=== PATIENT | male | born 1990 | race Caucasian/White ===

== ENCOUNTER 2016-05-04 13:32 | Emergency (ER) | payer MEDICAID ==
[2016-05-04] MEDS ORDERED: HALOPERIDOL LACTATE INJ 5 MG/1 ML VIAL IM ONE ×2 (13:53→14:43)
[2016-05-04] MEDS ORDERED: LORAZEPAM INJ 2 MG/1 ML VIAL IM ONE (14:43)
[2016-05-04] MEDS ORDERED: DIPHENHYDRAMINE HCL 50 MG/ML VIAL IM ONE (14:43)
[2016-05-04 14:45] LABS: ABSOLUTE BASOPHILS # (AUTO) 0.1 10^3/uL (0.0-0.2); ABSOLUTE EOSINOPHILS # (AUTO) 0.3 10^3/uL (0.0-0.6); ABSOLUTE LYMPHOCYTES (AUTO) 1.7 10^3/uL (0.5-4.7); ABSOLUTE MONOCYTES (AUTO) 0.7 10^3/uL (0.1-1.4); ABSOLUTE NEUT (AUTO) 7.9 10^3/uL (1.7-8.2); BASOPHILS % (AUTO) 1.1 % (0-2); EOSINOPHILS % (AUTO) 2.9 % (0-6); HEMATOCRIT 44.2 % (37.9-51.0); HEMOGLOBIN 15.1 g/dL (13.5-17.0); HGB HCT DIFFERENCE 1.1; LYMPHOCYTES % (AUTO) 15.9 % (13-45); MEAN CORPUSCULAR HEMOGLOBIN 30.5 pg (27.0-33.4); MEAN CORPUSCULAR HGB CONC 34.2 g/dL (32.0-36.0); MEAN CORPUSCULAR VOLUME 89 fl (80-97); MONOCYTES % (AUTO) 6.9 % (3-13); RED BLOOD COUNT 4.96 10^6/uL (4.35-5.55); RED CELL DISTRIBUTION WIDTH 13.2 % (11.5-14.0); SEGMENTED NEUTROPHILS % (AUTO) 73.2 % (42-78); WHITE BLOOD COUNT 10.8 10^3/uL (4.0-10.5)
--- NOTE | 2016-05-04 14:54 | ER Document Report ---
ED General - General Chief Complaint: Psych Problem Stated Complaint: IVC W/PAPERS Mode of Arrival: Medic Information source: Patient, Law Enforcement Notes: 26-year-old male history of schizophrenia who has been off his medications presents with police with concerns of bizarre behavior. Patient denies any specific concerns noted that he was stating that he was God the president and was aggressive towards others TRAVEL OUTSIDE OF THE [place] IN LAST 30 DAYS: No - HPI Onset: Just prior to arrival Onset/Duration: Sudden Quality of pain: No pain Severity: Moderate Pain Level: Denies Associated symptoms: Other Exacerbated by: Denies Relieved by: Denies Similar symptoms previously: Yes Recently seen / treated by doctor: Yes - Related Data Allergies/Adverse Reactions: No Known Allergies Allergy (Verified 02/02/15 15:52) Home Medications: Current Home Medications Benztropine Mesylate [Cogentin 1 mg Tablet] 1 mg PO DAILY 05/04/16 [History] Clonazepam [Klonopin 1 mg Tablet] 1 mg PO BID 05/04/16 [History] Clonidine HCl [Catapres 0.1 mg Tablet] 0.1 mg PO DAILY 05/04/16 [History] Olanzapine [Zyprexa] 10 mg PO DAILY 05/04/16 [History] Past Medical History - Social History Smoking Status: Current Every Day Smoker Cigarette use (# per day): Yes Chew tobacco use (# tins/day): No Smoking Education Provided: No Frequency of alcohol use: None Drug Abuse: Heroin, Marijuana Family History: Reviewed & Not Pertinent Patient has suicidal ideation: Yes Patient has homicidal ideation: Yes Renal/ Medical History: Denies: Hx Peritoneal Dialysis Musculoskeltal Medical History: Reports Hx Musculoskeletal Trauma Psychiatric Medical History: Reports: Hx Schizophrenia Traumatic Medical History: Reports: Hx Traumatic Brain Injury Past Surgical History: Reports: Hx Orthopedic Surgery - L knee surgery - Immunizations Immunizations up to date: Yes Hx Diphtheria, Pertussis, Tetanus Vaccination: Yes - UTD Review of Systems - Review of Systems Notes: REVIEW OF SYSTEMS: CONSTITUTIONAL : Denies fever, chills, or sweats. Denies recent illness. EENT: Denies eye, ear, throat, or mouth pain or symptoms. Denies nasal or sinus congestion or discharge. Denies throat, tongue, or mouth swelling or difficulty swallowing. CARDIOVASCULAR: Denies chest pain. Denies palpitations or racing or irregular heart beat. Denies ankle edema. RESPIRATORY: Denies cough, cold, or chest congestion. Denies shortness of breath, difficulty breathing, or wheezing. GASTROINTESTINAL: Denies abdominal pain or distention. Denies nausea, vomiting , or diarrhea. Denies blood in vomitus, stools, or per rectum. Denies black, tarry stools. Denies constipation. GENITOURINARY: Denies difficulty urinating, painful urination, burning, frequency, blood in urine, or discharge. MUSCULOSKELETAL: Denies back or neck pain or stiffness. Denies joint pain or swelling. SKIN: Denies rash, lesions or sores. HEMATOLOGIC : Denies easy bruising or bleeding. LYMPHATIC: Denies swollen, enlarged glands. NEUROLOGICAL: Denies confusion or altered mental status. Denies passing out or loss of consciousness. Denies dizziness or lightheadedness. Denies headache. Denies weakness or paralysis or loss of use of either side. Denies problems with gait or speech. Denies sensory loss, numbness, or tingling. Denies seizures. PSYCHIATRIC: Patient appears aggressive ALL OTHER SYSTEMS REVIEWED AND NEGATIVE. Dictation was performed using [employer] voice recognition software PHYSICAL EXAMINATION: GENERAL: Well-appearing, well-nourished and in no acute distress. HEAD: Atraumatic, normocephalic. EYES: Pupils equal round and reactive to light, extraocular movements intact, sclera anicteric, conjunctiva are normal. ENT: Nares patent, oropharynx clear without exudates. Moist mucous membranes. NECK: Normal range of motion, supple without lymphadenopathy LUNGS: Breath sounds clear to auscultation bilaterally and equal. No wheezes rales or rhonchi. HEART: Regular rate and rhythm without murmurs ABDOMEN: Soft, nontender, nondistended abdomen. No guarding, no rebound. No masses appreciated. Musculoskeletal: Normal range of motion, no pitting or edema. No cyanosis. NEUROLOGICAL: Cranial nerves grossly intact. Normal speech, normal gait. Normal sensory, motor exams PSYCH: Aggressive behavior tangential thoughts SKIN: Warm, Dry, normal turgor, no rashes or lesions noted. Physical Exam - Vital signs Vitals: Temp Pulse Resp BP Pulse Ox 98.2 F 104 H 18 137/85 H 99 05/04/16 13:45 05/04/16 13:45 05/04/16 13:45 05/04/16 13:45 05/04/16 13:45 Course - Re-evaluation Re-evalutation: 05/04/16 14:45 patient was quite aggressive on arrival, was given medication, patient appears "schizophrenic with hallucinations and delusions. Medically patient is stable mentally will require further intervention and care - Vital Signs Vital signs: Temp Pulse Resp BP Pulse Ox 98.2 F 104 H 18 137/85 H 99 05/04/16 13:45 05/04/16 13:45 05/04/16 13:53 05/04/16 13:45 05/04/16 13:45 - Laboratory Result Diagrams: 05/04/16 14:33 05/04/16 14:33 Laboratory results interpreted by me: 05/04/16 05/04/16 14:33 14:33 WBC 10.8 H Salicylates < 1.0 L Acetaminophen < 10 L - EKG Interpretation by Fl EKG shows normal: Sinus rhythm, [place], Intervals, QRS Complexes Discharge - Discharge Clinical Impression: Aggressive behavior Schizophrenia Qualifiers: Schizophrenia type: unspecified Qualified Code(s): F20.9 - Schizophrenia, unspecified Condition: Stable Disposition: PSYCH HOSP/UNIT
[2016-05-04 15:05] LABS: ALANINE AMINOTRANSFERASE 30 U/L (21-72); ALBUMIN 4.1 g/dL (3.5-5.0); ALCOHOL < 10 mg/dL (NONE DETECTED); ALKALINE PHOSPHATASE 85 U/L (38-126); ANION GAP 10 (5-19); ASPARTATE AMINO TRANSFERASE 19 U/L (17-59); BILIRUBIN,DIRECT 0.1 mg/dL (0.0-0.4); BILIRUBIN,TOTAL 0.4 mg/dL (0.2-1.3); BLOOD UREA NITROGEN 12 mg/dL (7-20); CALCIUM 9.8 mg/dL (8.4-10.2); CARBON DIOXIDE 28 mmol/L (22-30); CHLORIDE 105 mmol/L (98-107); CREATININE RESULT 0.68 mg/dL (0.52-1.25); GLUCOSE 88 mg/dL (75-110); SODIUM 143.4 mmol/L (137-145); TOTAL PROTEIN 6.5 g/dL (6.3-8.2)
[2016-05-04] MEDS: ZIPRASIDONE MESYLATE INJ/PF 20 MG SDV IM SCH (17:16)
[2016-05-04] MEDS: DIVALPROEX SODIUM 500 MG TAB.SR.24H PO SCH (17:16)
[2016-05-04] MEDS: OLANZAPINE INJ/PF 10 MG SDV IM PRN (21:55)
[2016-05-04] MEDS ORDERED: BENZTROPINE MESYLATE INJ 2 MG/2 ML AMPULE IM SCH (22:00)
[2016-05-04 23:07] LABS: APPEARANCE,URINE CLEAR; BILIRUBIN,URINE NEGATIVE (NEGATIVE); GLUCOSE, URINE NEGATIVE (NEGATIVE); KETONES,URINE TRACE mg/dL (NEGATIVE); LEUKOCYTE ESTERASE,URINE NEGATIVE (NEGATIVE); NITRITE,URINE NEGATIVE (NEGATIVE); PROTEIN,URINE NEGATIVE (NEGATIVE); UROBILINOGEN,URINE NEGATIVE mg/dL (<2.0)
[2016-05-04 23:15] LABS: URINE BARBITURATES SCREEN NEGATIVE; URINE METHADONE SCREEN NEGATIVE; URINE OPIATES LOW NEGATIVE; URINE PHENCYCLIDINE SCREEN NEGATIVE
[2016-05-05] MEDS ORDERED: ZIPRASIDONE MESYLATE INJ/PF 20 MG SDV IM ONE ×2 (00:33→10:08)
--- NOTE | 2016-05-05 00:34 | ER Document Report ---
Doctor's Note Notes: 05/05/16 00:33 Call to see patient by staff and security. Patient is restrained. Patient is yelling agitated and trying to knock the bed over with moving his restraints. On examination he is alert he says he is very angry and he wants to be out of here. Explained to him that we were given spinal medication called down to 90 him 20 mg of Geodon.*Dose of medication that he received was Zyprexa and Cogentin at 10 PM. And last dose of Geodon was at 5.
[2016-05-05] MEDS: ZIPRASIDONE MESYLATE INJ/PF 20 MG SDV IM SCH (00:36)
--- NOTE | 2016-05-05 08:16 | EKG REPORT ---
SEVERITY:- NORMAL ECG - SINUS RHYTHM : Confirmed by: Ena Medina 05-May-2016 08:15:58
[2016-05-05] MEDS: OLANZAPINE INJ/PF 10 MG SDV IM PRN (09:00)
--- NOTE | 2016-05-05 10:13 | ER Document Report ---
Doctor's Note Notes: 05/05/16 10:13 Patient is becoming more agitated and argumentative, according to the nurse. He has been given multiple medications to try to control his agitation and behavior but seems to be threatening at this time. I've ordered Geodon 20 mg IM and we will titrate that to behavior control. Deangelo Girard M.D.
[2016-05-05] MEDS: DIVALPROEX SODIUM 500 MG TAB.SR.24H PO SCH ×2 (11:00→17:15)
[2016-05-05] MEDS: HALOPERIDOL LACTATE INJ 5 MG/1 ML VIAL IM PRN ×2 (12:40→19:00)
--- NOTE | 2016-05-05 13:01 | PSYCHOLOGICAL NOTE ---
Psych Note - Psych Note Psych Note: 26-year-old male history of schizophrenia who has been off his medications presents with police with concerns of bizarre behavior. Patient denies any specific concerns noted that he was stating that he was God the president and was aggressive towards others Because of patient's aggressive behavior he had to be put in restraints and received medication to calm him. Clinician is unable to conduct evaluation, evaluation will be done at a later time.
--- NOTE | 2016-05-05 13:17 | PSYCHOLOGICAL NOTE ---
Psych Note - Psych Note Psych Note: 26-year-old male history of schizophrenia who has been off his medications presents with police with concerns of bizarre behavior. Patient denies any specific concerns noted that he was stating that he was God the president and was aggressive towards others Patient states that he is "part human, part God, and part wrath." He continued to state that he is the "wrath of God." When asked about the cuts on his arm, he stated that he was trying to kill himself to "prove Anand is real." Patient was difficult to redirect and pacing the room. He disclosed that he has lived in [facility] in [place]. Patient is alert however is unable to demonstrate orientation. Patient stated that it was February then asked clinician what the date was, he stated it is not "05/05/2016 it is 2024." Patient's mood is irritable with labile affect. Patient is having mixed delusions centering on jewish and grandiose. Thought process is disorganized with flight of thought. Conversational speech fluctuates in rate tone and prosody. Eye contact was good. Intellectual ability appears to be average range. Attention and concentration are poor. Insight, judgment, impulse control are poor. Patient became aggitated when he was denied THC stating that "if [place] made it legal it is legal in the [place]! [place] part of the [place] isn't it!" 298.9 (F29) unspecified schizophrenia spectrum and other psychotic disorder Impression\\plan: Patient is recommended to continue under IVC. Patient's cognitive processing is impaired, his delusions have made him a danger to himself demonstrated by his attempts at stabbing in killing himself to group that Anand is really he is God. Patient is recommended for inpatient treatment. Dr. Gutierres was consulted and the care management of this patient; attending physician is in agreement with recommendations and disposition.
[2016-05-05] MEDS: OLANZAPINE INJ/PF 10 MG SDV IM SCH (17:15)
[2016-05-05] MEDS: BENZTROPINE MESYLATE INJ 2 MG/2 ML AMPULE IM SCH (17:17)
[2016-05-06] MEDS: HALOPERIDOL LACTATE INJ 5 MG/1 ML VIAL IM PRN ×3 (02:43→15:29)
[2016-05-06] MEDS ORDERED: NICOTINE 14 MG/24 HR PATCH.TD24 TD ONE (04:56)
[2016-05-06] MEDS: BENZTROPINE MESYLATE INJ 2 MG/2 ML AMPULE IM SCH ×2 (09:19→18:28)
[2016-05-06] MEDS: DIVALPROEX SODIUM 500 MG TAB.SR.24H PO SCH ×2 (09:19→18:28)
[2016-05-06] MEDS: OLANZAPINE INJ/PF 10 MG SDV IM SCH ×2 (09:19→18:28)
--- NOTE | 2016-05-06 10:22 | PSYCHOLOGICAL NOTE ---
Psych Note - Psych Note Psych Note: 26-year-old male history of schizophrenia who has been off his medications presents with police with concerns of bizarre behavior. Patient denies any specific concerns noted that he was stating that he was God the president and was aggressive towards others Patient states to clinician again today that he is "God's wrath." Patient is adamant he came to [facility] ED on the or , when told that it was the patient states that that is incorrect and that he was here for "a long time and no one really seen me until you." Patient continues to demonstrate religiosity delusions and delusions of grandeur, to include believing he is God. Patient's ability to stay on conversation has improved with less flight of thought; clinician notes flight of thought appears to be waxing and waning. Patient is demonstrated the ability to be redirected without any aggression. Patient is still demonstrating manic-like behavior with little sleep, pacing, and constant speech. Clinician spoke with patient's grandmother, Viviana [phone], she states that the patient had a nervous breakdown approximately 2 years ago. She states this is when he was diagnosed with schizophrenia. She continued to disclosed that approximately one month ago he was in his "right mind" and wanted to go with his friends to [place]. Even know they asked him to stay, he left with them. He was gone approximately 3 weeks. She states they received a phone call from his friends stating the patient was acting strange, resulting in the patient's family having to go and get him. She continue disclose the patient has been back from [place] approximately one week where he has demonstrated persistent delusions. She states that the patient believes he is God all the time; however, when he is in his "right frame of mind, he doesn't really dwell on it." She stated he is not normally violent, he would never physically hit his mother or her; the physical aggression is what resulted in the patient being at [facility]. She states the patient normally is calm and enjoys talking with his friends and family. 298.9 (F29) unspecified schizophrenia spectrum and other psychotic disorder Impression\\plan: Patient is recommended to continue under IVC. Patient's cognitive processing is impaired, his delusions have made him a danger to himself demonstrated by his attempts at stabbing in killing himself to group that Anand is really he is God. Patient is recommended for inpatient treatment. Dr. Gutierres was consulted and the care management of this patient; attending physician is in agreement with recommendations and disposition.
--- NOTE | 2016-05-06 20:25 | ER Document Report ---
Doctor's Note Notes: 05/06/16 20:23 Late entry for Rounds earlier today. Chart reviewed and patient interviewed. Patient seems to be calming down some now so medications are likely having some affect. Vital signs remained normal. Lab studies show nothing unremarkable. Patient appears to be medically stable for transfer or discharge. Deangelo Girard M.D.
[2016-05-07] MEDS: HALOPERIDOL LACTATE INJ 5 MG/1 ML VIAL IM PRN (07:54)
[2016-05-07] MEDS: OLANZAPINE INJ/PF 10 MG SDV IM SCH ×2 (09:00→17:45)
[2016-05-07] MEDS: BENZTROPINE MESYLATE INJ 2 MG/2 ML AMPULE IM SCH ×2 (09:00→17:45)
--- NOTE | 2016-05-07 09:17 | ER Document Report ---
Doctor's Note Notes: 05/07/16 09:16 As the rounding physician for our psychiatric patients, I have reviewed the chart, vitals, lab work. Patient has been examined and noted to be stable, walking around his room in no distress. I am awaiting mental health in put. 05/07/16 09:57
[2016-05-07] MEDS ORDERED: DIVALPROEX SODIUM 500 MG TAB.SR.24H PO SCH ×2 (12:00→18:00)
--- NOTE | 2016-05-07 12:48 | PSYCHOLOGICAL NOTE ---
Psych Note - Psych Note Psych Note: 26-year-old male history of schizophrenia who has been off his medications presents with police with concerns of bizarre behavior. Patient denies any specific concerns noted that he was stating that he was God the president and was aggressive towards others Patient is demonstrating an increase in panic behavior. Patient is experiencing flight of thought that is no longer working and waning. Patient is of grandeur continue stating to clinician he is God and invented TV. Patient appears to be confused stating that he thought clinician was his doctor that delivered him. It is noted patient does not recognize clinician from day- to-day. 298.9 (F29) unspecified schizophrenia spectrum and other psychotic disorder Impression\plan: Patient is recommended to continue under IVC. Patient's cognitive processing is impaired, his delusions have made him a danger to himself demonstrated by his attempts at stabbing in killing himself to group that Anand is really he is God. Patient is recommended for inpatient treatment. Dr. Gutierres was consulted and the care management of this patient; attending physician is in agreement with recommendations and disposition.
[2016-05-07] MEDS: DIVALPROEX SODIUM 125 MG CAP.SPRINK PO SCH (21:35)
[2016-05-08] MEDS ORDERED: ACETAMINOPHEN 325 MG TABLET PO ONE (01:07)
[2016-05-08] MEDS: DIVALPROEX SODIUM 125 MG CAP.SPRINK PO SCH (08:41)
[2016-05-08] MEDS: HALOPERIDOL LACTATE INJ 5 MG/1 ML VIAL IM PRN (08:51)
--- NOTE | 2016-05-08 09:23 | ER Document Report ---
Doctor's Note Notes: 05/08/16 09:22 Lab work vital signs have been reviewed. At this time patient is currently stable with no overnight events requiring no intervention at this time. Patient stable for transfer or other disposition
[2016-05-08] MEDS: OLANZAPINE INJ/PF 10 MG SDV IM SCH (09:55)
[2016-05-08] MEDS: BENZTROPINE MESYLATE INJ 2 MG/2 ML AMPULE IM SCH (09:55)
[2016-05-08] MEDS ORDERED: HALOPERIDOL DECANOATE INJ 100 MG/1 ML VIAL IM ONE (11:23)
[2016-05-08] MEDS: OLANZAPINE 5 MG TAB.RAPDIS PO SCH (17:49)
[2016-05-08] MEDS: BENZTROPINE MESYLATE 1 MG TABLET PO SCH (17:49)
[2016-05-08] MEDS ORDERED: ZIPRASIDONE MESYLATE INJ/PF 20 MG SDV IM ONE (22:01)
[2016-05-08] MEDS ORDERED: LORAZEPAM INJ 2 MG/1 ML VIAL IM ONE (22:01)
[2016-05-08] MEDS ORDERED: DIPHENHYDRAMINE HCL 50 MG/ML VIAL IM ONE (22:02)
[2016-05-09] MEDS: OLANZAPINE INJ/PF 10 MG SDV IM SCH (08:15)
[2016-05-09] MEDS: DIVALPROEX SODIUM 125 MG CAP.SPRINK PO SCH (09:04)
--- NOTE | 2016-05-09 10:07 | ER Document Report ---
Doctor's Note Notes: 05/09/16 10:05 Medical rounds: Chart reviewed and patient interviewed briefly. Vital signs are normal. Laboratory values are remarkable for presence of THC on drug screen and a subtherapeutic valproic acid level. On examination, patient is alert and oriented. He continues to be quite delusional, with very poorly organized thought processes and conversation. He continues medically stable, pending reevaluation by psych. 05/09/16 10:08
[2016-05-09] MEDS: OLANZAPINE 5 MG TAB.RAPDIS PO SCH (10:34)
[2016-05-09] MEDS: BENZTROPINE MESYLATE 1 MG TABLET PO SCH (10:34)
[2016-05-09] MEDS ORDERED: LORAZEPAM INJ 2 MG/1 ML VIAL IM ONE (13:42)
[2016-05-09] MEDS ORDERED: IBUPROFEN 800 MG TABLET PO ONE (14:51)
[2016-05-09 16:00] VITALS: BP 130/78
--- NOTE | 2016-05-09 16:20 | PSYCHOLOGICAL NOTE ---
Psych Note - Psych Note Psych Note: Conducted check in with patient who is a 26 year old male under IVC at [facility] ED. Patient has been in this department under IVC since 05/04/16. Patient has undergone numerous medication changes, to include administering 100 mg Haldol Deconate 05/08/16. Throughout the episode, patient has been observed challenging to redirect, hyperverbal, delusional with sabianism preoccupations, and restless. Patient today demonstrates a marked change in these observed behaviors. He is able to be redirected to remain in his room when he comes out. He remains hyperverbal, but is slower for prosody. Patient has not identified himself as God, but does frequently talk about the Bible, Oz and Edel, and other Biblical stories. Patient is considered to be at his baseline functioning at this time. Patient denies thoughts of harming himself or anyone else. Person to contact/notify, Viviana states: she is his mother and she feels he is not at his baseline and that his mood is still up and down. Discussed with mother that medication changes have been made, to include the Haldol Deconate and the immediate crisis of patient presenting as a danger to himself and others has resolved. Mother terminated the conversation without notice Patient is A&O to name, location. Mood is manic with congruent affects. Patient denies suicidal/homicidal ideations, intent, plan, or means. Patient denies A/V H, but is observed in his room talking; delusions noted. Thought processes were better, but remain tangential. Conversational speech was rapid for rate, tone, and prosody. Intellectual abilities were estimated within the lower average range. Attention and focus were fair. Insight, judgment, and impulse control were poor. 298.9 (F29) unspecified schizophrenia spectrum and other psychotic disorder Patient is psychiatrically cleared and recommended for recent IVC. As noted above, patient has been in this department receiving pharmacological interventions since May 04. Patient today, while he does continue to present hyperverbal with some sabianism preoccupations, does demonstrate marked improvement from initial presentation. Patient's initial presenting crisis of dangerous to self and others has resolved and he is likely at his baseline functioning. Patient is recommended to follow-up with his psychiatric provider , SRI BLACK. Patient denies suicidal/homicidal ideations and does not appear to be following directives of command hallucinations. I consulted with Dr. Gutierres in regards to the care and management of this patient. ED M.D. is in agreement with disposition and recommendations.
--- NOTE | 2016-05-09 16:20 | PSYCHOLOGICAL NOTE ---
Psych Note - Psych Note Psych Note: Conducted check in with patient who is a 26 year old male under IVC at [facility]. Patient today continues to present with pressured speech, pacing and requiring constant redirection to remain in his room, etc. Patient continues to talk about delusions with yarsani preoccupation. Patient was observed throughout the morning to present less talkative the fewer the people in the area, suggesting a possible behavioral component to his overall presentation. Patient has persevorated on discharge regardless of redirection. 298.9 (F29) unspecified schizophrenia spectrum and other psychotic disorder Impression\plan: Patient is recommended to continue under IVC.
== END 2016-05-09 16:10 | disposition home or self-care (01) ==
LOC: ER 13:32
DX: F20.9 Schizophrenia, unspecified (principal); Z78.1 Physical restraint status; F17.210 Nicotine dependence, cigarettes, uncomplicated; Z87.820 Personal history of traumatic brain injury
CPT/HCPCS: 93005; 99285; 96372; 36415; 80307 ×4; 85025; 80053; 81001; 80164; 70450; 93010; J3490 ×12; J0515 ×4; J1631; J1200 ×2; J1630 ×4; J2060 ×2; J3486 ×2

== ENCOUNTER 2016-05-22 06:54 | Emergency (ER) | payer MEDICAID ==
--- NOTE | 2016-05-22 07:39 | ER Document Report ---
HPI - HPI Patient complains to provider of: right posterior ankle pain Onset: This morning Onset/Duration: Gradual Quality of pain: Achy Pain Level: 4 Context: Patient states that he woke up with pain to the posterior right ankle area. Patient states that he when he went to step down on his foot he fell on the floor. Patient complains of continued posterior right ankle pain. Associated Symptoms: Other - Right ankle pain Exacerbated by: Standing, Movement, Walking Relieved by: Denies Similar symptoms previously: No Recently seen / treated by doctor: No - ROS ROS below otherwise negative: Yes Systems Reviewed and Negative: Yes All other systems reviewed and negative - CONSTITUTIONAL Constitutional: DENIES: Fever - CARDIOVASCULAR Cardiovascular: DENIES: Chest pain - REPRODUCTIVE Reproductive: DENIES: : - MUSCULOSKELETAL Musculoskeletal: REPORTS: Extremity pain - Right ankle, Swelling - DERM Skin Color: Normal Skin Problems: None Past Medical History - General Information source: Patient - Social History Smoking Status: Current Every Day Smoker Chew tobacco use (# tins/day): - 15 Frequency of alcohol use: None Drug Abuse: Marijuana Occupation: none Lives with: Family Family History: Reviewed & Not Pertinent Patient has suicidal ideation: No Patient has homicidal ideation: No Musculoskeltal Medical History: Reports Hx Musculoskeletal Trauma Psychiatric Medical History: Reports: Hx Schizophrenia Traumatic Medical History: Reports: Hx Traumatic Brain Injury Past Surgical History: Reports: Hx Orthopedic Surgery - L knee surgery - Immunizations Immunizations up to date: Yes Hx Diphtheria, Pertussis, Tetanus Vaccination: Yes - UTD Vertical Provider Document - CONSTITUTIONAL Agree With Documented VS: Yes Exam Limitations: No Limitations General Appearance: WD/WN, No Apparent Distress - INFECTION CONTROL TRAVEL OUTSIDE OF THE [place] IN LAST 30 DAYS: No - HEENT HEENT: Atraumatic, Normocephalic - NECK Neck: Normal Inspection - RESPIRATORY Respiratory: Breath Sounds Normal, No Respiratory Distress O2 Sat by Pulse Oximetry: 96 - CARDIOVASCULAR Cardiovascular: Regular Rate, Regular Rhythm Pulses: Normal: Dorsalis pedis - MUSCULOSKELETAL/EXTREMETIES Musculoskeletal/Extremeties: MAEW, Tender - Right posterior ankle tenderness along the Achilles tendon, No Edema. negative: Eccymosis Notes: Posterior ankle tenderness increases with weightbearing, normal squeeze test - NEURO Level of Consciousness: Awake, Alert, Appropriate Motor/Sensory: No Motor Deficit, No Sensory Deficit - DERM Integumentary: Warm, Dry, No Rash Course - Vital Signs Vital signs: Temp Pulse Resp BP Pulse Ox 97.7 F 102 H 19 143/79 H 96 05/22/16 07:15 05/22/16 07:15 05/22/16 07:15 05/22/16 07:15 05/22/16 06:59 - Diagnostic Test Radiology reviewed: Image reviewed, Reports reviewed Procedures - Immobilization Right Ankle Pre-Proc Neuro Vasc Exam: Normal Immobilizer type: Ankle stirrup Performed by: PCT Post-Proc Neuro Vasc Exam: Normal Alignment checked and good: Yes Discharge - Discharge Clinical Impression: Elevated blood pressure reading, Tendinitis Ankle pain, right Qualifiers: Chronicity: acute Qualified Code(s): M25.571 - Pain in right ankle and joints of right foot Condition: Stable Disposition: HOME, SELF-CARE Instructions: Use of Crutches ([facility]), Ankle Stirrup Splint ([facility]), Oral Narcotic Medication ([facility]), Tendonitis ([facility]), Anti-Inflammatory Medication ([facility]) Additional Instructions: Return immediately for any new or worsening symptoms Followup with your primary care provider, call tomorrow to make a followup appointment. Your blood pressure was mildly elevated today. Recheck with primary doctor in 1-2 days to have this reevaluated Weightbearing as tolerated Follow-up with an orthopedic Dr. for any continued pain or problems Prescriptions: Acetaminophen with Codeine [Acetaminophen-Cod #3 Tablet] 1 each PO Q6 PRN #12 tablet PRN Reason: Naproxen [Naprosyn 250 Nmg Tablet] 1 tab PO BID #14 tablet Forms: Elevated Blood Pressure Referrals: [facility] [Provider Group] - Follow up as needed [facility] [Provider Group] - Follow up tomorrow
[2016-05-22] MEDS ORDERED: HYDROCODONE/ACETAMINOPHEN 5-325 MG TABLET PO ONE (07:40)
[2016-05-22 09:10] VITALS: BP 108/73
== END 2016-05-22 09:12 | disposition home or self-care (01) ==
LOC: ER 06:54
DX: M77.9 Enthesopathy, unspecified (principal); M25.571 Pain in right ankle and joints of right foot; W19.XXXA Unspecified fall, initial encounter; F17.200 Nicotine dependence, unspecified, uncomplicated; R03.0 Elevated blood-pressure reading, without diagnosis of hypertension
CPT/HCPCS: 99283; 73610; L1902

== ENCOUNTER 2016-05-23 11:09 | Emergency (ER) | payer MEDICAID ==
[2016-05-23] MEDS ORDERED: IBUPROFEN 800 MG TABLET PO ONE (12:19)
--- NOTE | 2016-05-23 12:21 | ER Document Report ---
HPI - HPI Patient complains to provider of: right ankle pain Onset: Yesterday Onset/Duration: Persistent Quality of pain: Achy Severity: Severe Pain Level: 5 Context: Patient presents to the emergency department with complaints of right Achilles tendon pain. He reports he stepped out of the bed yesterday and when he stepped down he had the worst pain he ever had and fell face forward. He reports his Achilles tendon is hurting. He denies past medical history of injury to the area. Patient reports he was evaluated here in the emergency department prescribed crutches, Tylenol with codeine and naproxen. He reports he took all the pain medications he received and he still hurting. He reports he is concerned the Achilles tendon is bleeding inside. Pt also requests to be referred to pain management for his left knee injury that he injured when he was 18 years old. Associated Symptoms: None Exacerbated by: Movement, Walking Relieved by: Denies Similar symptoms previously: Yes Recently seen / treated by doctor: Yes - REPRODUCTIVE Reproductive: DENIES: : - DERM Skin Color: Normal Past Medical History - General Information source: Patient - Social History Smoking Status: Current Every Day Smoker Cigarette use (# per day): Yes Drug Abuse: Marijuana Lives with: Family Family History: Reviewed & Not Pertinent Patient has suicidal ideation: No Patient has homicidal ideation: No Renal/ Medical History: Denies: Hx Peritoneal Dialysis Musculoskeltal Medical History: Reports Hx Musculoskeletal Trauma Psychiatric Medical History: Reports: Hx Schizophrenia Traumatic Medical History: Reports: Hx Traumatic Brain Injury Past Surgical History: Reports: Hx Orthopedic Surgery - L knee surgery - Immunizations Immunizations up to date: Yes Hx Diphtheria, Pertussis, Tetanus Vaccination: Yes - UTD Vertical Provider Document - CONSTITUTIONAL Agree With Documented VS: Yes Exam Limitations: No Limitations General Appearance: WD/WN, Mild Distress - winces when posterior ankle palpated - INFECTION CONTROL TRAVEL OUTSIDE OF THE [place] IN LAST 30 DAYS: No - HEENT HEENT: Atraumatic, Normocephalic - NECK Neck: Supple - RESPIRATORY Respiratory: Breath Sounds Normal, No Respiratory Distress O2 Sat by Pulse Oximetry: 98 - MUSCULOSKELETAL/EXTREMETIES Musculoskeletal/Extremeties: MAEW, FROM, Tender - no obvious deformity, normal donovan test, slight erythema to posterior ankle, good pedal pulse, brisk cap refill - NEURO Level of Consciousness: Awake, Alert, Appropriate Motor/Sensory: No Motor Deficit - DERM Integumentary: Warm, Dry Course - Re-evaluation Re-evalutation: 05/23/16 13:01 pt wants to leave, his uncle does not want to wait. He was instructed on pending US. He verbalized understanding. upon DISCHARGE PATIENT CHANGED HIS MIND AND DECIDED HE WANTS TO STAY NOW. 05/23/16 Post MRI patient was instructed on no Achilles tendon rupture. Was discussed tendinitis. Patient was instructed on plan of care. He declined any further splinting. He requested pain medication. He was instructed on NSAIDs. He was instructed on the importance of follow-up with orthopedics primary care provider for recheck of area. He verbalized understanding to all information. - Vital Signs Vital signs: Temp Pulse Resp BP Pulse Ox 97.7 F 112 H 20 151/87 H 98 05/23/16 11:12 05/23/16 11:12 05/23/16 11:12 05/23/16 11:12 05/23/16 11:12 - Diagnostic Test Radiology reviewed: Image reviewed, Reports reviewed - Diagnostic report text EXAM DESCRIPTION: U/S EXTREMITY NONVASCULAR COMP COMPLETED DATE/TIME: 2016 1:43 pm REASON FOR STUDY: right achilles tendon eval COMPARISON: None. TECHNIQUE: Static and real time hilario scale ultrasound Doppler spectral analysis, and color Doppler acquired of the right Achilles tendon. Comparison left Achilles tendon imaging was also performed. LIMITATIONS: None. FINDINGS: On the right side, a partial thickness tear of the Achilles tendon is suspected at the musculotendinous junction. The right mid and distal Achilles tendon is normal in echogenicity and size. Comparison imaging of the left Achilles tendon is unremarkable. TECHNICAL DOCUMENTATION: JOB ID: [id number] [employer]- All Rights Reserved US /U/S EXTREMITY NONVASCULAR COMP IMPRESSION: Findings worrisome for partial thickness Achilles tendon tear on the right side, at the musculotendinous junction MRI- negative for ACHILLES OR MUSCULOTENDINOUS JUNCTION TEAR, MILD PERITENDINITIS. Discharge - Discharge Clinical Impression: Right ankle pain, Elevated blood pressure reading, Tendinitis Condition: Stable Disposition: HOME, SELF-CARE Instructions: Use of Crutches ([facility]), Ice & Elevation ([facility]), Ankle Stirrup Splint ([facility]), Tendonitis ([facility]), Anti-Inflammatory Medication ([facility]) Additional Instructions: *You have been evaluated for an ankle pain, tendinitis, elevated blood pressure reading *Rest/Ice/Elevate your ankle *Maintain the splint *Use your crutches *Follow up with orthopedics -call for an appointment *Take your naproxen as prescribed *Return to ED for worsening condition, changes, needs Forms: Elevated Blood Pressure
[2016-05-23] MEDS ORDERED: ACETAMINOPHEN WITH CODEINE #3 TABLET PO ONE (16:10)
[2016-05-23 16:57] VITALS: BP 138/75
== END 2016-05-23 16:55 | disposition home or self-care (01) ==
LOC: ER 11:09
DX: M77.9 Enthesopathy, unspecified (principal); M25.571 Pain in right ankle and joints of right foot; R03.0 Elevated blood-pressure reading, without diagnosis of hypertension; W06.XXXA Fall from bed, initial encounter; F17.210 Nicotine dependence, cigarettes, uncomplicated; Z87.820 Personal history of traumatic brain injury
CPT/HCPCS: 99283; 73718; 76881; J3490

== ENCOUNTER 2017-02-20 08:58 | Emergency (ER) | payer MEDICAID, OTHER ==
[2017-02-20] MEDS ORDERED: ALBUTEROL SULFATE 0.083% NEB 2.5 MG/3 ML AMPUL NEB ONE (09:32)
[2017-02-20 10:03] LABS: ABSOLUTE BASOPHILS # (AUTO) 0.1 10^3/uL (0.0-0.2); ABSOLUTE EOSINOPHILS # (AUTO) 0.2 10^3/uL (0.0-0.6); ABSOLUTE LYMPHOCYTES (AUTO) 2.7 10^3/uL (0.5-4.7); ABSOLUTE MONOCYTES (AUTO) 0.6 10^3/uL (0.1-1.4); ABSOLUTE NEUT (AUTO) 4.5 10^3/uL (1.7-8.2); BASOPHILS % (AUTO) 0.8 % (0-2); EOSINOPHILS % (AUTO) 1.9 % (0-6); HEMATOCRIT 47.5 % (37.9-51.0); HEMOGLOBIN 16.1 g/dL (13.5-17.0); LYMPHOCYTES % (AUTO) 34.1 % (13-45); MEAN CORPUSCULAR HEMOGLOBIN 30.3 pg (27.0-33.4); MEAN CORPUSCULAR VOLUME 89 fl (80-97); PLATELET COUNT 269 10^3/uL (150-450); RED BLOOD COUNT 5.32 10^6/uL (4.35-5.55); SEGMENTED NEUTROPHILS % (AUTO) 56.2 % (42-78); TOTAL CELLS COUNTED % (AUTO) 100 %
--- NOTE | 2017-02-20 10:13 | RADIOLOGY REPORT (SQ) ---
EXAM DESCRIPTION: CT HEAD WITHOUT COMPLETED DATE/TIME: 02/20/2017 10:03 am REASON FOR STUDY: severe benton COMPARISON: 05/08/2016 TECHNIQUE: Axial images acquired through the brain without intravenous contrast. Images reviewed wi th bone, brain and subdural windows. Images stored on PACS. All CT scanners at this facility use dose modulation, iterative reconstruction, and/or weight based d osing when appropriate to reduce radiation dose to as low as reasonably achievable (ALARA). [facility]: Dose Right [facility]: CareDose [facility]: Dose Right [facility]: Teradose 4D [facility]: [employer] RADIATION DOSE: CT Rad equipment meets quality standard of care and radiation dose reduction techniq ues were employed. CTDIvol: 64.6 mGy. DLP: 1292 mGy-cm. mGy. LIMITATIONS: None. FINDINGS: VENTRICLES: Normal size and contour. CEREBRUM: No masses. No hemorrhage. No midline shift. No evidence for acute infarction. Normal gra y/white matter differentiation. No areas of low density in the white matter. CEREBELLUM: No masses. No hemorrhage. No alteration of density. No evidence for acute infarction. EXTRAAXIAL SPACES: No fluid collections. No masses. ORBITS AND GLOBE: No intra- or extraconal masses. Normal contour of globe without masses. CALVARIUM: No fracture. PARANASAL SINUSES: There is mild mucosal thickening of the frontal, ethmoid, and right maxillary sinu ses with moderate mucosal thickening of the left maxillary sinus. No air-fluid levels. SOFT TISSUES: No mass or hematoma. OTHER: No other significant finding. IMPRESSION: PARANASAL SINUS DISEASE ABOVE. OTHERWISE UNREMARKABLE NONCONTRAST CT HEAD. EVIDENCE OF ACUTE STROKE: NO. COMMENT: Quality ID # [id number]: Final reports with documentation of one or more dose reduction techniques (e.g., Automated exposure control, adjustment of the mA and/or kV according to patient size, use of iterative reconstruction technique) TECHNICAL DOCUMENTATION: JOB ID: [id number] [employer]- All Rights Reserved
--- NOTE | 2017-02-20 10:14 | RADIOLOGY REPORT (SQ) ---
EXAM DESCRIPTION: CHEST PA/LAT COMPLETED DATE/TIME: 02/20/2017 9:55 am REASON FOR STUDY: sob COMPARISON: None. EXAM PARAMETERS: NUMBER OF VIEWS: two views TECHNIQUE: Digital Frontal and Lateral radiographic views of the chest acquired. RADIATION DOSE: NA LIMITATIONS: none FINDINGS: LUNGS AND PLEURA: No opacities, masses or pneumothorax. No pleural effusion. MEDIASTINUM AND HILAR STRUCTURES: No masses or contour abnormalities. HEART AND VASCULAR STRUCTURES: Heart normal size. No evidence for failure. BONES: No acute findings. HARDWARE: None in the chest. OTHER: No other significant finding. IMPRESSION: NO SIGNIFICANT RADIOGRAPHIC FINDING IN THE CHEST. TECHNICAL DOCUMENTATION: JOB ID: [id number] [employer]- All Rights Reserved
[2017-02-20 10:24] LABS: ALANINE AMINOTRANSFERASE 38 U/L (21-72); ALBUMIN 4.6 g/dL (3.5-5.0); ALKALINE PHOSPHATASE 69 U/L (38-126); ANION GAP 11 (5-19); ASPARTATE AMINO TRANSFERASE 20 U/L (17-59); BILIRUBIN,DIRECT 0.2 mg/dL (0.0-0.4); BILIRUBIN,TOTAL 0.3 mg/dL (0.2-1.3); BLOOD UREA NITROGEN 12 mg/dL (7-20); CALCIUM 10.3 mg/dL (8.4-10.2); CARBON DIOXIDE 25 mmol/L (22-30); CHLORIDE 108 mmol/L (98-107); GLUCOSE 98 mg/dL (75-110); POTASSIUM 5.1 mmol/L (3.6-5.0); SODIUM 143.7 mmol/L (137-145); TOTAL PROTEIN 7.5 g/dL (6.3-8.2)
--- NOTE | 2017-02-20 10:42 | ER Document Report ---
ED General - General Chief Complaint: Headache Stated Complaint: HEADACHE Time Seen by Provider: 02/20/17 09:30 Mode of Arrival: Ambulatory Information source: Patient Notes: Patient states for several days he has had congestion and productive cough of yellow-green sputum. He is felt mildly short of breath. He also states that this morning he woke up with a throbbing headache. It was midline. It was constant. It was moderate to severe. Nothing made it better or worse. Did not radiate. Patient states that he has had no fevers. TRAVEL OUTSIDE OF THE [place] IN LAST 30 DAYS: No - Related Data Allergies/Adverse Reactions: No Known Allergies Allergy (Verified 05/23/16 11:12) Past Medical History - General Information source: Patient - Social History Smoking Status: Current Every Day Smoker Chew tobacco use (# tins/day): No Frequency of alcohol use: None Drug Abuse: Marijuana Family History: Reviewed & Not Pertinent Patient has suicidal ideation: No Patient has homicidal ideation: No Renal/ Medical History: Denies: Hx Peritoneal Dialysis Musculoskeltal Medical History: Reports Hx Musculoskeletal Trauma Psychiatric Medical History: Reports: Hx Schizophrenia Traumatic Medical History: Reports: Hx Traumatic Brain Injury Past Surgical History: Reports: Hx Orthopedic Surgery - L knee surgery - Immunizations Immunizations up to date: Yes Hx Diphtheria, Pertussis, Tetanus Vaccination: Yes - UTD Review of Systems - Review of Systems Constitutional: Malaise. denies: Fever Cardiovascular: denies: Chest pain, Palpitations Respiratory: Cough, Short of breath -: Yes All other systems reviewed and negative Physical Exam - Vital signs Vitals: Temp Pulse Resp BP Pulse Ox 97.5 F 89 19 146/71 H 93 02/20/17 09:03 02/20/17 09:03 02/20/17 09:03 02/20/17 09:03 02/20/17 09:03 Interpretation: Hypertensive - General General appearance: Appears well, Alert In distress: None - HEENT Head: Normocephalic, Atraumatic Eyes: Normal Pupils: PERRL - Respiratory Respiratory status: No respiratory distress Chest status: Nontender Breath sounds: Rhonchi - Bilateral Chest palpation: Normal - Cardiovascular Rhythm: Regular Heart sounds: Normal auscultation Murmur: No - Abdominal Inspection: Normal Distension: No distension Bowel sounds: Normal Tenderness: Nontender Organomegaly: No organomegaly - Back Back: Normal, Nontender - Extremities General upper extremity: Normal inspection, Nontender, Normal color, Normal ROM , Normal temperature General lower extremity: Normal inspection, Nontender, Normal color, Normal ROM , Normal temperature, Normal weight bearing. No: Berta's sign - Neurological Neuro grossly intact: Yes Cognition: Normal Orientation: AAOx4 Ramana Coma Scale Eye Opening: Spontaneous [place] Coma Scale Verbal: Oriented Ramana Coma Scale Motor: Obeys Commands Ramana Coma Scale Total: 15 Speech: Normal Motor strength normal: LUE, RUE, LLE, RLE Sensory: Normal - Psychological Associated symptoms: Normal affect, Normal mood - Skin Skin Temperature: Warm Skin Moisture: Dry Skin Color: Normal Course - Vital Signs Vital signs: Temp Pulse Resp BP Pulse Ox 97.5 F 89 19 146/71 H 93 02/20/17 09:03 02/20/17 09:03 02/20/17 09:03 02/20/17 09:03 02/20/17 09:03 - Laboratory Result Diagrams: 02/20/17 09:45 02/20/17 09:45 Laboratory results interpreted by me: 02/20/17 09:45 Potassium 5.1 H Chloride 108 H Calcium 10.3 H - Diagnostic Test Radiology reviewed: Image reviewed, Reports reviewed - Head CT shows bilateral paranasal sinus disease. Chest x-ray shows no evidence of acute infiltrate or edema. Discharge - Discharge Clinical Impression: Acute sinusitis Qualifiers: Sinusitis location: maxillary Recurrence: non-recurrent Qualified Code(s): J01.00 - Acute maxillary sinusitis, unspecified Condition: Stable Disposition: HOME, SELF-CARE Instructions: Oral Narcotic Medication ([facility]), Sinusitis ([facility]) Additional Instructions: Your blood pressure is elevated. Please have this rechecked within 1 week by your doctor. Your potassium is mildly elevated. Please have this rechecked within 3-4 days by your physician. Prescriptions: Albuterol Sulfate [Ventolin Hfa] 1 - 2 puff IH Q4 PRN #1 [id number] PRN Reason: Amoxicillin 500 mg PO TID 10 Days #30 capsule Hydrocodone/Acetaminophen [[place] 5-325 mg Tablet] 1 tab PO Q6 PRN 3 Days #12 tablet PRN Reason: Forms: Elevated Blood Pressure, Return to Work Referrals: LEXI HOLMAN MD [COMMUNITY BASED STAFF] - Follow up in 3-5 days
[2017-02-20 10:56] VITALS: BP 145/72
== END 2017-02-20 10:53 | disposition home or self-care (01) ==
LOC: ER 08:58
DX: J01.00 Acute maxillary sinusitis, unspecified (principal); R51 Headache; R40.0 Somnolence; R05 Cough; R06.02 Shortness of breath; F17.200 Nicotine dependence, unspecified, uncomplicated; R53.81 Other malaise; R09.89 Other specified symptoms and signs involving the circulatory and respiratory systems; Z79.899 Other long term (current) drug therapy
CPT/HCPCS: 36415; 70450; 71046; 80053; 85025; 94640; 99284

== ENCOUNTER 2017-04-19 01:01 | Emergency (ER) | payer MEDICAID ==
[2017-04-19] MEDS ORDERED: ZIPRASIDONE MESYLATE INJ/PF 20 MG SDV IM ONE (01:06)
--- NOTE | 2017-04-19 01:17 | ER Document Report ---
ED Psych Disorder / Suicide - General Mode of Arrival: Ambulatory Information source: Patient TRAVEL OUTSIDE OF THE U.S. IN LAST 30 DAYS: No <RUBI GONZALEZ - Last Filed: 04/19/17 01:32> <JU CASTILLO - Last Filed: 04/19/17 03:35> - General Stated Complaint: PSYCH PROBLEM Time Seen by Provider: 04/19/17 01:05 Notes: Patient is a 27 year old male that presents to the emergency department today with complaints of "being off of his medicine" according to IVC paperwork. IVC paperwork states patient was on invega, clozapine, and clonidine getting shots but had been switched to pills and he stopped taking his medication. Patient is disheveled and malodorous. Patient appears to be talking to someone who is not in the room. (RUBI GONZALEZ) - Related Data Allergies/Adverse Reactions: No Known Allergies Allergy (Verified 05/23/16 11:12) Past Medical History - General Information source: Patient, Law Enforcement, [facility] Records - Social History Smoking Status: Current Every Day Smoker Cigarette use (# per day): Yes Frequency of alcohol use: Social Drug Abuse: None Lives with: Family Family History: Reviewed & Not Pertinent Renal/ Medical History: Denies: Hx Peritoneal Dialysis Musculoskeltal Medical History: Reports Hx Musculoskeletal Trauma Psychiatric Medical History: Reports: Hx Schizophrenia Traumatic Medical History: Reports: Hx Traumatic Brain Injury Past Surgical History: Reports: Hx Orthopedic Surgery - L knee surgery - Immunizations Immunizations up to date: Yes Hx Diphtheria, Pertussis, Tetanus Vaccination: Yes - UTD <RUBI GONZALEZ - Last Filed: 04/19/17 01:32> Review of Systems - Review of Systems Constitutional: No symptoms reported EENT: No symptoms reported Cardiovascular: No symptoms reported Respiratory: No symptoms reported Gastrointestinal: No symptoms reported Genitourinary: No symptoms reported Male Genitourinary: No symptoms reported Musculoskeletal: No symptoms reported Skin: No symptoms reported Hematologic/Lymphatic: No symptoms reported Neurological/Psychological: See HPI, Hallucinations -: Yes All other systems reviewed and negative <RUBI GONZALEZ - Last Filed: 04/19/17 01:32> <JU CASTILLO - Last Filed: 04/19/17 03:35> - Review of Systems Notes: from IVC paperwork (RUBI GONZALEZ) Physical Exam - Vital signs Interpretation: Hypertensive - General General appearance: Alert - HEENT Head: Normocephalic, Atraumatic Eyes: Normal Pupils: PERRL - Respiratory Respiratory status: No respiratory distress Chest status: Nontender Breath sounds: Normal Chest palpation: Normal - Cardiovascular Rhythm: Regular Heart sounds: Normal auscultation Murmur: No - Abdominal Inspection: Obese Distension: No distension Bowel sounds: Normal Tenderness: Nontender Organomegaly: No organomegaly - Back Back: Normal, Nontender - Extremities General upper extremity: Normal inspection, Nontender, Normal color, Normal ROM , Normal temperature General lower extremity: Nontender, Normal color, Normal ROM, Normal temperature , Normal weight bearing. No: Berta's sign - Neurological Neuro grossly intact: Yes Orientation: AAOx4 Ramana Coma Scale Eye Opening: Spontaneous [place] Coma Scale Verbal: Confused Ramana Coma Scale Motor: Obeys Commands Ramana Coma Scale Total: 14 Speech: Normal Motor strength normal: LUE, RUE, LLE, RLE Sensory: Normal - Psychological Associated symptoms: Agitated, Anxious, Irritable, Labile, Psychomotor agitation , Evangelical preoccupation - Skin Skin Temperature: Warm Skin Moisture: Dry Skin Color: Normal <JU CASTILLO - Last Filed: 04/19/17 03:35> - Vital signs Vitals: Temp Pulse Resp BP Pulse Ox 99.7 F 84 18 162/87 H 98 04/19/17 01:05 04/19/17 01:05 04/19/17 01:05 04/19/17 01:05 04/19/17 01:05 Course - Laboratory Result Diagrams: 04/19/17 01:15 04/19/17 01:15 <RUBI GONZALEZ - Last Filed: 04/19/17 01:32> - Laboratory Result Diagrams: 04/19/17 01:15 04/19/17 01:15 <JU CASTILLO - Last Filed: 04/19/17 03:35> - Re-evaluation Re-evalutation: 04/19/17 03:34 Patient is a 27-year-old male with a history of schizophrenia who presents having conversations with people who are not there. Patient has not been taking his medications. He is religiously preoccupied. Patient has been brought in on involuntary commitment paperwork. He is otherwise medically stable. He will be held for mental health evaluation in the morning. Patient has been given Geodon due to his agitation here in the emergency department this evening. (JU CASTILLO) - Vital Signs Vital signs: Temp Pulse Resp BP Pulse Ox 99.7 F 84 18 162/87 H 98 04/19/17 01:05 04/19/17 01:05 04/19/17 01:05 04/19/17 01:05 04/19/17 01:05 - Laboratory Laboratory results interpreted by me: 04/19/17 04/19/17 01:15 01:15 WBC 11.5 H Chloride 109 H Salicylates < 1.0 L Acetaminophen < 10 L Discharge <RUBI GONZALEZ - Last Filed: 04/19/17 01:32> <JU CASTILLO - Last Filed: 04/19/17 03:35> - Discharge Clinical Impression: Hallucinations Schizophrenia Qualifiers: Schizophrenia type: other Qualified Code(s): F20.89 - Other schizophrenia; F20.8 - Other schizophrenia Condition: Stable Disposition: PSYCH HOSP/UNIT Scribe Attestation: 04/19/17 03:35 I personally performed the services described in the documentation, reviewed and edited the documentation which was dictated to the scribe in my presence, and it accurately records my words and actions. (JU CASTILLO) Scribe Documentation - Scribe Written by Scribe:: Sandra Mendoza, 04/19/2017 0150 acting as scribe for :: Zahira <RUBI GONZALEZ - Last Filed: 04/19/17 01:32>
[2017-04-19 01:28] LABS: ABSOLUTE BASOPHILS # (AUTO) 0.1 10^3/uL (0.0-0.2); ABSOLUTE EOSINOPHILS # (AUTO) 0.3 10^3/uL (0.0-0.6); ABSOLUTE LYMPHOCYTES (AUTO) 3.3 10^3/uL (0.5-4.7); ABSOLUTE MONOCYTES (AUTO) 0.9 10^3/uL (0.1-1.4); ABSOLUTE NEUT (AUTO) 6.9 10^3/uL (1.7-8.2); BASOPHILS % (AUTO) 0.9 % (0-2); HEMATOCRIT 45.9 % (37.9-51.0); HEMOGLOBIN 15.5 g/dL (13.5-17.0); LYMPHOCYTES % (AUTO) 28.4 % (13-45); MEAN CORPUSCULAR HEMOGLOBIN 30.3 pg (27.0-33.4); MEAN CORPUSCULAR HGB CONC 33.8 g/dL (32.0-36.0); MEAN CORPUSCULAR VOLUME 90 fl (80-97); MONOCYTES % (AUTO) 7.8 % (3-13); PLATELET COUNT 286 10^3/uL (150-450); RED BLOOD COUNT 5.12 10^6/uL (4.35-5.55); RED CELL DISTRIBUTION WIDTH 13.3 % (11.5-14.0); SEGMENTED NEUTROPHILS % (AUTO) 59.9 % (42-78); TOTAL CELLS COUNTED % (AUTO) 100 %; WHITE BLOOD COUNT 11.5 10^3/uL (4.0-10.5)
[2017-04-19 01:45] LABS: ALANINE AMINOTRANSFERASE 34 U/L (21-72); ALBUMIN 4.2 g/dL (3.5-5.0); ALKALINE PHOSPHATASE 64 U/L (38-126); ANION GAP 11 (5-19); ASPARTATE AMINO TRANSFERASE 18 U/L (17-59); BILIRUBIN,DIRECT 0.3 mg/dL (0.0-0.4); BILIRUBIN,TOTAL 0.3 mg/dL (0.2-1.3); BLOOD UREA NITROGEN 13 mg/dL (7-20); CALCIUM 9.7 mg/dL (8.4-10.2); CARBON DIOXIDE 25 mmol/L (22-30); CHLORIDE 109 mmol/L (98-107); GLUCOSE 100 mg/dL (75-110); POTASSIUM 4.1 mmol/L (3.6-5.0); SODIUM 144.9 mmol/L (137-145); TOTAL PROTEIN 6.9 g/dL (6.3-8.2)
[2017-04-19 01:47] LABS: ACETAMINOPHEN < 10 ug/mL (10-30); ALCOHOL < 10 mg/dL (NONE DETECTED); SALICYLATE < 1.0 mg/dL (2.0-20.0)
[2017-04-19 06:56] LABS: APPEARANCE,URINE CLEAR; BILIRUBIN,URINE NEGATIVE (NEGATIVE); COLOR,URINE YELLOW; GLUCOSE, URINE NEGATIVE (NEGATIVE); KETONES,URINE NEGATIVE (NEGATIVE); LEUKOCYTE ESTERASE,URINE NEGATIVE (NEGATIVE); NITRITE,URINE NEGATIVE (NEGATIVE); PROTEIN,URINE NEGATIVE (NEGATIVE); URINE SPECIFIC GRAVITY 1.016; UROBILINOGEN,URINE NEGATIVE mg/dL (<2.0)
[2017-04-19 07:10] LABS: URINE AMPHETAMINES SCREEN NEGATIVE; URINE BARBITURATES SCREEN NEGATIVE; URINE BENZODIAZEPINES SCREEN NEGATIVE; URINE COCAINE SCREEN NEGATIVE; URINE MARIJUANA (THC) SCREEN UNCONFIRMED POSITIVE; URINE METHADONE SCREEN NEGATIVE; URINE PHENCYCLIDINE SCREEN NEGATIVE
[2017-04-19] MEDS ORDERED: NICOTINE 21 MG/24 HR PATCH.TD24 TD ONE (08:20)
--- NOTE | 2017-04-19 08:25 | EKG REPORT ---
SEVERITY:- NORMAL ECG - SINUS RHYTHM : Confirmed by: Zhou Griffin MD 19-Apr-2017 08:24:53
--- NOTE | 2017-04-19 09:19 | ER Document Report ---
Doctor's Note Notes: 04/19/17 10:38 As the rounding physician for our psychiatric patients, I have reviewed the chart, vitals, lab work. Patient has been examined and noted to be stable but requiring medications . I am awaiting mental health in put.
[2017-04-19] MEDS ORDERED: HALOPERIDOL DECANOATE INJ 100 MG/1 ML VIAL IM ONE (10:40)
[2017-04-19] MEDS ORDERED: HALOPERIDOL 5 MG TABLET PO SCH (10:45)
[2017-04-19] MEDS ORDERED: BENZTROPINE MESYLATE 1 MG TABLET PO SCH (10:45)
[2017-04-19] MEDS ORDERED: HALOPERIDOL 5 MG TABLET PO ONE (11:30)
[2017-04-19] MEDS ORDERED: BENZTROPINE MESYLATE 1 MG TABLET PO ONE (11:30)
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
[2017-04-19] MEDS: HALOPERIDOL 5 MG TABLET PO SCH (23:12)
[2017-04-20] MEDS ORDERED: LORAZEPAM 1 MG TABLET PO ONE (01:02)
[2017-04-20] MEDS ORDERED: NICOTINE 14 MG/24 HR PATCH.TD24 TD ONE (01:02)
[2017-04-20] MEDS: HALOPERIDOL 5 MG TABLET PO SCH (09:03)
[2017-04-20] MEDS ORDERED: BENZTROPINE MESYLATE 1 MG TABLET PO SCH (10:00)
--- NOTE | 2017-04-20 10:00 | ER Document Report ---
Doctor's Note Notes: 04/20/17 09:58 Rounds: Chart reviewed and patient not interviewed because he is in the shower. Patient apparently ran out of his medications. Was very disoriented upon his arrival. Patient also quite disheveled and malodorous. Vital signs are all normal. Lab studies all essentially normal, as well. From review of the chart , patient appears to be medically stable for transfer or discharge. Deangelo Girard MD
--- NOTE | 2017-04-20 16:04 | PSYCHOLOGICAL NOTE ---
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 Review of previous [facility] visits has similar etiology for chief complaints. Patient is in no longer demonstrating manic behavior is able to carry on a organized and linear conversation with clinician. Patient is observed talking to himself upon entry and when questioned he states that he was residing a book which he does frequently; "I talk to myself a lot I was just residing a book." Patient denies wanting to hurt himself or others. Patient has been calm and acting appropriately. Patient disclosed that he is been thinking about moving out on his own but knows that he will have to save up before that occurs. Conversational speech was within normal rate, tone and prosody. Eye contact was well-maintained. Thought process is organized, linear and rational. Diagnosis: 295.90 (F20.9) Schizophrenia, Paranoid Type by History Medication recomendations per [facility]'s contracted psychiatrist Dr. Carlita MD are as follows: 1. Haldol 5MG PO BID 2. Cogentin 1MG PO QD Impression/Plan: Patient is recommended for rescind of IVC and is considered psychologically cleared. Patient has a previous diagnosis of Paranoid Schizophrenia and has been noncompliant with medication. Patient has a upcoming [facility] appointment on 05/01/2016. He received a Haldol Deconoate shot and that information has been forwarded to [facility] for continuity of care. Consulted with Dr. Gutierres regarding the management and care of patient. ED Physician in agreement with recommendations. <BUCK GUTIERRES - Last Filed: 04/20/17 23:09> Psych Note - Psych Note Psych Note: A warm handoff to [facility] occurred at discharge so that ongoing services could occur until patient's appointment with [facility] was scheduled.
[2017-04-20 16:40] VITALS: BP 134/79
== END 2017-04-20 16:39 | disposition home or self-care (01) ==
LOC: ER 01:01
DX: F20.89 Other schizophrenia (principal); F17.210 Nicotine dependence, cigarettes, uncomplicated; Z87.820 Personal history of traumatic brain injury
CPT/HCPCS: 93005; 99285; 96372; 36415; 80307 ×4; 85025; 80053; 81001; 93010; J3490 ×6; J1631; J3486

== ENCOUNTER 2017-05-11 16:22 | Emergency (ER) | payer MEDICAID, OTHER ==
[2017-05-11 16:29] VITALS: BP 126/70
--- NOTE | 2017-05-11 16:40 | ER Document Report ---
HPI - HPI Pain Level: 2 Context: Patient is a male who presents emergency room with a chief complaint of red bumps on his tongue that started this morning when he woke up. He denies any pain, difficulty swallowing, difficulty breathing, shortness of breath, fevers or chills. Patient is a pack-a-day smoker. - REPRODUCTIVE Reproductive: DENIES: : Past Medical History - Social History Smoking Status: Current Every Day Smoker Family History: Reviewed & Not Pertinent Renal/ Medical History: Denies: Hx Peritoneal Dialysis Musculoskeltal Medical History: Reports Hx Musculoskeletal Trauma Psychiatric Medical History: Reports: Hx Schizophrenia Traumatic Medical History: Reports: Hx Traumatic Brain Injury Past Surgical History: Reports: Hx Orthopedic Surgery - L knee surgery - Immunizations Immunizations up to date: Yes Hx Diphtheria, Pertussis, Tetanus Vaccination: Yes - UTD Vertical Provider Document - CONSTITUTIONAL Agree With Documented VS: Yes Notes: PHYSICAL EXAM GENERAL: Alert, interacts well. HEAD: Normocephalic, atraumatic. EYES: Pupils equal, round, and reactive to light. Extraocular movements intact. ENT: Oral mucosa moist, tongue midline. posterior tongue with mild hypertrophy of isolated taste buds without edema, airway compromise NECK: Full range of motion. Supple. Trachea midline. LUNGS: Clear to auscultation bilaterally, no wheezes, rales, or rhonchi. No respiratory distress. HEART: Regular rate and rhythm. No murmurs, gallops, or rubs. NEUROLOGICAL: Alert and oriented x4. Normal speech. PSYCH: Normal affect, normal mood. SKIN: Warm, dry, normal turgor. No rashes or lesions noted. - INFECTION CONTROL TRAVEL OUTSIDE OF THE [place] IN LAST 30 DAYS: No Course - Re-evaluation Re-evalutation: 05/11/17 20:44 Patient presents with vague complaint of tongue discomfort. This did not appear to be concerning for any acute life-threatening pathologyor concern for home medication reaction. Vitals are within normal limits at triage and at time of discharge. Physical examination is unremarkable. Patient has tolerated oral intake without difficulty. Patient was not noted to be in distress at any point during their ER visit. Will discharge with return precautions and follow- up recommendations. Verbal discharge instructions given a the bedside and opportunity for questions given. Patient is in agreement with this plan and has verbalized understanding of return precautions and the need for primary care follow-up in the next 24-72 hours. - Vital Signs Vital signs: Temp Pulse Resp BP Pulse Ox 97.5 F 88 16 126/70 H 96 05/11/17 16:27 05/11/17 16:27 05/11/17 16:27 05/11/17 16:27 05/11/17 16:27 Discharge - Discharge Clinical Impression: Well adult health check Condition: Good Disposition: HOME, SELF-CARE Additional Instructions: You have been seen today in the Emergency Department for your concerns. At this time there is no obvious cause for your concerns. If your symptoms do worsen or new symptoms occur you must return immediately for further care. Either way you must follow up with the primary care physician for further evaluation Referrals: [facility] [NO LOCAL MD] - Follow up as needed ALVIN TIM MD [ACTIVE STAFF] - Follow up as needed
== END 2017-05-11 16:44 | disposition home or self-care (01) ==
LOC: ER 16:22
DX: K14.3 Hypertrophy of tongue papillae (principal); F17.200 Nicotine dependence, unspecified, uncomplicated
CPT/HCPCS: 99282

== ENCOUNTER 2019-06-10 21:54 | Emergency (ER) | payer MEDICARE, MEDICAID ==
[2019-06-10] MEDS ORDERED: NORMAL SALINE 1000 ML 1,000 ML IV ONE (23:03)
--- NOTE | 2019-06-10 23:06 | ER Document Report ---
ED General - General Chief Complaint: Chest Pain Stated Complaint: SWOLLEN FEET/CHEST PRESSURE Time Seen by Provider: 06/10/19 22:57 Notes: Patient is a 29-year-old male that comes emergency department by EMS for chief complaint of chest pressure. Patient admits that he snorted heroin at 1600 today, he also states that he shot up heroin and meth over the past 2 days although he states "I think I missed when I tried to do the meth". He states that he just started using IV drugs because he wanted to try it but he states he feels bad and he is done. Patient denies fever, cough, nausea, vomiting, abdominal pain, or current chest pain. He states he has some swelling in his feet but he states they were swollen more before and now have basically resolved. He admits that he is hearing voices but he states "I am schizophrenic, I hear them all the time". He denies SI or HI. He is prescribed Invega and Xanax. Reportedly patient also has a history of anxiety and TBI. He states he lives at home with his friends. TRAVEL OUTSIDE OF THE [place] IN LAST 30 DAYS: No - Related Data Allergies/Adverse Reactions: No Known Allergies Allergy (Verified 06/10/19 22:09) Home Medications: XANAX. INVEGA Past Medical History - Social History Smoking Status: Current Every Day Smoker Frequency of alcohol use: None Drug Abuse: Heroin Family History: Reviewed & Not Pertinent Patient has homicidal ideation: No Renal/ Medical History: Denies: Hx Peritoneal Dialysis Musculoskeletal Medical History: Reports Hx Musculoskeletal Trauma Psychiatric Medical History: Reports: Hx Schizophrenia Traumatic Medical History: Reports: Hx Traumatic Brain Injury Past Surgical History: Reports: Hx Orthopedic Surgery - L knee surgery - Immunizations Immunizations up to date: Yes Hx Diphtheria, Pertussis, Tetanus Vaccination: Yes - UTD Review of Systems - Review of Systems Constitutional: See HPI EENT: No symptoms reported Cardiovascular: No symptoms reported Respiratory: No symptoms reported Gastrointestinal: No symptoms reported Genitourinary: No symptoms reported Male Genitourinary: No symptoms reported Musculoskeletal: No symptoms reported Skin: No symptoms reported Hematologic/Lymphatic: No symptoms reported Neurological/Psychological: No symptoms reported Physical Exam - Vital signs Vitals: Temp Pulse Resp BP Pulse Ox 98.5 F 91 18 120/64 96 06/10/19 22:07 06/10/19 22:07 06/10/19 22:07 06/10/19 22:07 06/10/19 22:07 - Notes Notes: GENERAL: Drowsy, arouses to verbal stimuli and cooperates but then falls immediately back to sleep HEAD: Normocephalic, atraumatic. EYES: Pupils equal but pinpoint. Extraocular motions intact. ENT: Oral mucosa moist, tongue midline. Oropharynx unremarkable. Airway patent. NECK: Full range of motion. Supple. Trachea midline. No lymphadenopathy. LUNGS: Clear to auscultation bilaterally, no wheezes, rales, or rhonchi. No respiratory distress. Non-tender chest wall. HEART: Regular rate and rhythm. No murmur ABDOMEN: Soft, non-tender. Non-distended. EXTREMITIES: Moves all 4 extremities spontaneously. Questionable mild soft tissue swelling of the bilateral lower extremities, no pitting edema. Normal radial and dorsalis pedis pulses bilaterally. No cyanosis. BACK: no cervical, thoracic, lumbar midline tenderness. No saddle anesthesia, normal distal neurovascular exam. Moves all extremities in full range of motion. NEUROLOGICAL: Oriented x3. Drowsy. Normal speech. Cranial nerves II through XII grossly intact. Strength 5/5 in all extremities. SKIN: Warm, dry, normal turgor. No rashes or lesions noted. Course - Re-evaluation Re-evalutation: Patient initially with pinpoint pupils, drowsy but still responds to verbal stimuli, protecting his airway. He will be monitored until he is more awake. Given IV fluids. CBC unremarkable, chemistry unremarkable, troponins are both negative. EKG with no acute findings, chest x-ray unremarkable. Alcohol negative. Patient is already telling me he used recreational drugs. He has no signs of infection on exam. He has no fever, vital signs unremarkable. Patient was monitored for an extended period time, after this his pupils became normal, he became alert and responsive, he became talkative. Patient states that he regrets using recreational drugs, he understands that are extremely dangerous and he will if he continues to the use them. He denies depression, suicidal ideations, homicidal ideations, or any current complaints. He states he is ready to go home. He denies current hallucinations, patient does not appear to be responding to internal stimuli, patient makes good eye contact, asks appropriate questions. Patient does have some lower extremity swelling which is extremely mild, appears to be chronic, he was provided with stockings for these. Patient states understanding and agreement with plan. Stable and well-appearing at time of discharge. - Vital Signs Vital signs: Temp Pulse Resp BP Pulse Ox 98.5 F 62 20 121/47 L 95 06/10/19 22:09 06/11/19 04:10 06/11/19 04:10 06/11/19 04:10 06/11/19 04:10 - Laboratory Result Diagrams: 06/10/19 22:59 06/10/19 22:59 Laboratory results interpreted by me: 06/10/19 22:59 Sodium 135.6 L Salicylates < 1.0 L Acetaminophen < 10 L - EKG Interpretation by Me Additional EKG results interpreted by me: EKG shows sinus rhythm at a rate of 80, QTc 466, normal axis, no T wave inversions or ST segment changes in consecutive leads. Discharge - Discharge Clinical Impression: Substance abuse, Swelling of both lower extremities Chest pain Qualifiers: Chest pain type: unspecified Qualified Code(s): R07.9 - Chest pain, unspecified Condition: Stable Disposition: HOME, SELF-CARE Additional Instructions: Your work-up here does not show any concerning findings. Do not use any illegal/recreational substances, these are extremely dangerous and will lead to your . Use the compression stockings especially at night, elevate your legs whenever possible, follow-up with primary care for additional management. Return if you worsen including returned or severe pain, fever, vomiting, passing out, shortness of breath, or any other concerning symptoms. Prescriptions: Compress.stocking,Knee,Reg,Lrg [Relief Knee Open Toe] 2 [facility] PR[facility] #2 each PRN Reason: Forms: Return to Work
--- NOTE | 2019-06-10 23:07 | RADIOLOGY REPORT (SQ) ---
EXAM DESCRIPTION: XR CHEST 2 VIEWS COMPLETED DATE/TME: 06/10/2019 00:00 CLINICAL HISTORY: 29 years, Male, CHEST PAIN COMPARISON: X-ray chest 02/20/2017 NUMBER OF VIEWS: TECHNIQUE: LIMITATIONS: None. FINDINGS: No evidence of pulmonary infiltrate or pleural effusion. The heart and mediastinum are unremarkable. Pulmonary vascularity appears normal. There is no significant change, as compared with the prior x-ray(s). IMPRESSION: No acute finding. copyright 2010 [employer]- All Rights Reserved
[2019-06-10 23:11] LABS: ABSOLUTE BASOPHILS # (AUTO) 0.1 10^3/uL (0.0-0.2); ABSOLUTE EOSINOPHILS # (AUTO) 0.3 10^3/uL (0.0-0.6); ABSOLUTE LYMPHOCYTES (AUTO) 2.3 10^3/uL (0.5-4.7); ABSOLUTE MONOCYTES (AUTO) 0.8 10^3/uL (0.1-1.4); ABSOLUTE NEUT (AUTO) 6.1 10^3/uL (1.7-8.2); BASOPHILS % (AUTO) 0.9 % (0-2); EOSINOPHILS % (AUTO) 3.2 % (0-6); HEMATOCRIT 40.4 % (37.9-51.0); HEMOGLOBIN 14.1 g/dL (13.5-17.0); MEAN CORPUSCULAR HEMOGLOBIN 30.9 pg (27.0-33.4); MEAN CORPUSCULAR HGB CONC 34.9 g/dL (32.0-36.0); MEAN CORPUSCULAR VOLUME 89 fl (80-97); MONOCYTES % (AUTO) 8.6 % (3-13); PLATELET COUNT 299 10^3/uL (150-450); RED BLOOD COUNT 4.56 10^6/uL (4.35-5.55); RED CELL DISTRIBUTION WIDTH 13.1 % (11.5-14.0); SEGMENTED NEUTROPHILS % (AUTO) 63.3 % (42-78); TOTAL CELLS COUNTED % (AUTO) 100 %; WHITE BLOOD COUNT 9.6 10^3/uL (4.0-10.5)
[2019-06-10 23:31] LABS: ALBUMIN 3.6 g/dL (3.5-5.0); ALKALINE PHOSPHATASE 67 U/L (38-126); ANION GAP 6 (5-19); ASPARTATE AMINO TRANSFERASE 21 U/L (17-59); BILIRUBIN,TOTAL 0.4 mg/dL (0.2-1.3); BLOOD UREA NITROGEN 9 mg/dL (7-20); CALCIUM 8.6 mg/dL (8.4-10.2); CARBON DIOXIDE 30 mmol/L (22-30); CHLORIDE 100 mmol/L (98-107); CREATINE KINASE 161 U/L (55-170); GLUCOSE 100 mg/dL (75-110); POTASSIUM 4.4 mmol/L (3.6-5.0); TOTAL PROTEIN 6.6 g/dL (6.3-8.2)
[2019-06-10 23:32] LABS: ACETAMINOPHEN < 10 ug/mL (10-30); ALCOHOL < 10 mg/dL (NONE DETECTED); SALICYLATE < 1.0 mg/dL (2.0-20.0)
[2019-06-11 05:10] VITALS: BP 121/47
--- NOTE | 2019-06-11 07:58 | EKG REPORT ---
SEVERITY:- NORMAL ECG - SINUS RHYTHM : Confirmed by: Zhou Griffin MD 11-Jun-2019 07:57:13
== END 2019-06-11 04:10 | disposition home or self-care (01) ==
LOC: ER 21:54
DX: R07.9 Chest pain, unspecified (principal); M79.89 Other specified soft tissue disorders; F19.10 Other psychoactive substance abuse, uncomplicated; F17.200 Nicotine dependence, unspecified, uncomplicated
CPT/HCPCS: 93005; 99285; 96360; 96361; 36415; 80307 ×3; 82550; 85025; 80053; 84484; 71046; 93010; J7030